=== PATIENT | female | born 1975 | race Caucasian/White ===

== ENCOUNTER → 2016-04-04 | Outpatient (CLI) | payer OTHER ==
[~2016-04-04] MED LIST: BENTYL10 MG PO; BENTYL20 MG PO; CALCIUM 500 MG1 EACH PO; CLEOCIN300 MG PO; CLONIDINE HCL0.1 MG PO; CYANOCOBAL1000 MCG/2 IM; FIORICET WI1 CAPSULE PO; FIORICET,ESG1 TABLET PO; Flagyl PO; METHADONE5 MG PO; METRONIDAZOLE500 MG PO; MOBIC15 MG PO; MOTRIN800 MG PO; NAPROSYN500 MG PO; NICOTINE PATCH1 EAC2 TD; NORCO 5/3251 TABLET PO; NORCO 7.5/321 TABLET PO; ONDANSETRON HCL8 MG PO; OXYCODONE-APAP1 EACH PO; PENTASA500 MG PO; PERCOCET 10/1 TABLET PO; PERCOCET 5/31 TABLET PO; PERCOCET 7.51 TABLET PO; PREDNISONE10 MG PO; PREDNISONE20 MG PO; PRISTIQ50 MG PO; Percocet 5/325,Endoc PO; PriLOSEC OTC PO; RAYOS5 MG PO; REMICADE10 MG/ML IV; SUBOXONE 12 MG1 EACH SL; SUBOXONE 4 MG-1 EACH SL; SUBOXONE 8 MG-1 EAC2 SL; TESSALON PERLE100 MG PO; TRAZODONE HCL150 MG PO; TRAZODONE HCL50 MG PO; ZOFRAN ODT4 MG PO; ZOFRAN ODT8 MG PO; ZOFRAN4 MG PO
== END | disposition home or self-care (01) ==
LOC: EKG 04-01 13:00
DX: I87.2 Venous insufficiency (chronic) (peripheral) (principal)
CPT/HCPCS: 93306

== ENCOUNTER 2016-04-30 00:37 | Emergency (ER) | payer OTHER ==
[~2016-04-30] VITALS: Ht 172.7 cm; Wt 105.8 kg
[2016-04-30 01:48] LABS: CHLORIDE 106 mEq/L (99-109); POTASSIUM 3.8 mEq/L (3.7-5.4); SODIUM 139 mEq/L (136-147)
[2016-04-30 01:50] LABS: D-DIMER ELISA 0.54 mg/L FEU (< 0.57)
[2016-04-30 01:50] LABS: GLUCOSE 89 mg/dL (70-99)
[2016-04-30 01:51] LABS: ANION GAP 9 MEQ/L (2-14)
[2016-04-30 01:52] LABS: TOTAL BILIRUBIN 0.6 mg/dL (0.0-1.0)
[2016-04-30 01:54] LABS: ALKALINE PHOSPHATASE 66 IU/L (3-129); GFR ESTIMATE (CALCULATED) > 59 mL/min/
[2016-04-30 01:54] LABS: HEMATOCRIT 38.3 % (36.0-46.0); MCH 29.5 PG (29.0-34.0); MCHC 34.5 G/DL (30.0-36.0); MCV 85.7 FL (83-99); MEAN PLAT.VOLUME 10.6 uM^3 (9.5-12.4); PLATELET COUNT 225 K/uL (156-360); RBC DIS.WIDTH-CV 13.3 % (11.8-14.6); RBC DIS.WIDTH-SD 41.7 % (39-53); RED BLOOD COUNT 4.47 M/uL (3.80-5.20); WHITE BLOOD COUNT 11.3 K/uL (4.1-10.2)
[2016-04-30 01:55] LABS: UREA NITROGEN (BUN) 12 mg/dL (9-23)
[2016-04-30 01:57] LABS: LIPASE 27 U/L (1.0-51.0)
[2016-04-30 02:00] LABS: TROP-I INTERPRETATION NEGATIVE; TROPONIN-I < 0.01 ng/mL (0.0-0.30)
[2016-04-30] MEDS ORDERED: HYCODAN SYRUP480 ML PO (04:23)
[2016-04-30] MEDS ORDERED: VENTOLIN HFA18 GM IH (04:23)
[2016-04-30] MEDS ORDERED: MEDROL DOSEPAK4 MG PO (04:23)
[2016-04-30] MEDS ORDERED: ZITHROMAX Z-PA250 MG PO (04:23)
[2016-04-30 04:35] VITALS: BP 106/48
== END 2016-04-30 04:53 | disposition home or self-care (01) ==
LOC: EME 00:37
PROVIDERS: Physician Assistant
DX: R07.81 Pleurodynia (principal); R05 Cough; F17.210 Nicotine dependence, cigarettes, uncomplicated; Z71.6 Tobacco abuse counseling; K50.90 Crohn's disease, unspecified, without complications
CPT/HCPCS: 71020; 71275; 80053; 83690; 84484; 85027; 85379; 93005; 94640; 99281; 99284; J1885; J2270; J2405; J7512

== ENCOUNTER → 2016-12-13 15:39 | Emergency (ER) | payer OTHER ==
[~2016-12-13] VITALS: Ht 172.7 cm; Wt 106.0 kg
[~2016-12-13 15:39] MED LIST changes: +HYCODAN SYRUP480 ML PO; +MEDROL DOSEPAK4 MG PO; +VENTOLIN HFA18 GM IH; +ZITHROMAX Z-PA250 MG PO
[2016-12-13 16:03] VITALS: BP 142/81
[2016-12-13 16:35] LABS: HEMATOCRIT 41.9 % (36.0-46.0); MCH 28.9 PG (29.0-34.0); MCHC 34.4 G/DL (30.0-36.0); MEAN PLAT.VOLUME 10.3 uM^3 (9.5-12.4); PLATELET COUNT 336 K/uL (156-360); RBC DIS.WIDTH-CV 13.2 % (11.8-14.6); RBC DIS.WIDTH-SD 40.4 % (39-53); RED BLOOD COUNT 4.99 M/uL (3.80-5.20); WHITE BLOOD COUNT 14.8 K/uL (4.1-10.2)
[2016-12-13 16:51] LABS: CHLORIDE 112 mEq/L (99-109); POTASSIUM 3.5 mEq/L (3.7-5.4); SODIUM 140 mEq/L (136-147)
[2016-12-13 16:53] LABS: GLUCOSE 86 mg/dL (70-99)
[2016-12-13 16:54] LABS: ANION GAP 11 MEQ/L (2-14)
[2016-12-13 16:55] LABS: TOTAL BILIRUBIN 0.3 mg/dL (0.0-1.0)
[2016-12-13 16:57] LABS: ALKALINE PHOSPHATASE 85 IU/L (3-129); GFR ESTIMATE (CALCULATED) > 59 mL/min/
[2016-12-13 16:58] LABS: UREA NITROGEN (BUN) 10 mg/dL (9-23)
[2016-12-13 17:00] LABS: LIPASE 22 U/L (1.0-51.0)
[2016-12-13 17:08] LABS: QUANTITATIVE HCG < 4.0 MIU/ML
== END | disposition left against medical advice (07) ==
LOC: EME 15:39
PROVIDERS: Physician Assistant Medical
DX: R10.13 Epigastric pain (principal); K50.90 Crohn's disease, unspecified, without complications; Z90.49 Acquired absence of other specified parts of digestive tract; F17.200 Nicotine dependence, unspecified, uncomplicated
CPT/HCPCS: 80053; 81003; 83690; 84702; 85027; J7030

== ENCOUNTER 2017-01-06 17:14 | Emergency (ER) | payer OTHER ==
[~2017-01-06] VITALS: Ht 172.7 cm; Wt 106.5 kg
[2017-01-06] MEDS ORDERED: PREDNISONE20 MG PO (18:59)
[2017-01-06] MEDS ORDERED: TESSALON PERLE100 MG PO (18:59)
[2017-01-06] MEDS ORDERED: VENTOLIN HFA18 GM IH (18:59)
[2017-01-06 19:11] VITALS: BP 120/77
== END 2017-01-06 19:15 | disposition home or self-care (01) ==
LOC: EME 17:14
DX: J06.9 Acute upper respiratory infection, unspecified (principal); Z88.2 Allergy status to sulfonamides
CPT/HCPCS: 71020; 87651 90; 99281; 99284